=== PATIENT | female | born 1945 | race Caucasian/White ===

== ENCOUNTER 2016-11-09 14:22 | Emergency (ER) | payer MEDICARE, OTHER ==
[~2016-11-09 14:22] MED LIST: ASPIRIN CHEWABL81 MG PO; ATIVAN1 MG PO; LASIX20 MG PO; LIPITOR20 M1 PO; NORVASC5 MG PO; PHENOBARBITAL30 MG PO; PRINIVIL10 MG PO; TENORMIN50 MG PO
[2016-11-09 15:44] LABS: CREATININE 1.1 mg/dL (0.5-1.0); POTASSIUM 4.4 mmol/L (3.5-5.1)
[2016-11-09 15:53] LABS: EOSINOPHIL 2.2 % (0-7); HCT 37.2 % (37.0-47.0); HGB 12.4 g/dl (12.5-16.0); LYMPHOCYTE 38.7 % (15-48); MCH 33.8 pg (25.0-31.0); MCHC 33.3 g/dL (32.0-36.0); MCV 101.4 fL (78.0-100.0); MONOCYTE 9.9 % (0-12); MPV 9.9 fL (6.0-9.5); NEUTROPHIL 48.2 % (41-80); PLT 264 K/uL (150-400); RBC 3.67 M/uL (4.20-5.40); RDW 13.7 % (11.5-14.0); WBC 8.4 K/uL (4.0-10.5)
== END 2016-11-09 16:40 | disposition home or self-care (01) ==
LOC: FER 14:22
PROVIDERS: Emergency Medicine
DX: R68.84 Jaw pain (principal); I10 Essential (primary) hypertension; G40.909 Epilepsy, unspecified, not intractable, without status epilepticus; F17.210 Nicotine dependence, cigarettes, uncomplicated; Z88.8 Allergy status to other drugs, medicaments and biological substances; Z79.82 Long term (current) use of aspirin; Z79.899 Other long term (current) drug therapy
CPT/HCPCS: 36415; 71010; 80048; 84484; 85025; 93005

== ENCOUNTER 2021-07-23 16:05 | Inpatient (IN) | payer MEDICARE, OTHER ==
[~2021-07-23] VITALS: Ht 168 cm; Wt 79.0 kg
[~2021-07-23 16:05] MED LIST changes: +LIDOCAINE 5% P1 EACH TOP; +NAPROSYN250 MG PO; +VOLTAREN100 GM TOP
[2021-07-23 17:03] LABS: BASOPHIL 0.2 % (0-2); EOSINOPHIL 0 % (0-7); HCT 28.2 % (37.0-47.0); HGB 9.1 g/dl (12.5-16.0); MCH 32.2 pg (25.0-31.0); MCHC 32.3 g/dL (32.0-36.0); MCV 99.6 fL (78.0-100.0); MONOCYTE 7.2 % (0-12); MPV 9.5 fL (6.0-9.5); NEUTROPHIL 78.4 % (41-80); NRBC 0; PLT 319 K/uL (150-400); RBC 2.83 M/uL (4.20-5.40); RDW 13.5 % (11.5-14.0); WBC 13.2 K/uL (4.0-10.5)
[2021-07-23 17:08] LABS: INR 1.28 (0.9-1.2); PROTHROMBIN TIME 15.3 SECONDS (11.8-13.4)
[2021-07-23 17:24] LABS: BILIRUBIN 1+ mg/dL (NEGATIVE); BLOOD NEGATIVE Ery/uL (NEGATIVE); CLARITY CLEAR (CLEAR); COLOR YELLOW (YELLOW); GLUCOSE (U) NORMAL (NORMAL); LEUKOCYTES NEGATIVE Leu/uL (NEGATIVE); NITRITE NEGATIVE (NEGATIVE); PROTEIN TRACE (LOW) mg/dL (NEGATIVE); SPECIFIC GRAVITY 1.025 (1.001-1.030); UROBILINOGEN 0.2 mg/dL (0.2-1.0); pH 5.5 (5.0-9.0)
[2021-07-23 17:36] LABS: LACTIC ACID 1.2 mmol/L (0.4-1.9)
[2021-07-23 17:58] LABS: PRO-BNP 4113 pg/mL (<450)
[2021-07-23 18:21] LABS: ALBUMIN 2.8 g/dL (3.4-5.0); ALKALINE PHOSHATASE 129 U/L (46-116); ALT 17 U/L (14-59); AST 41 U/L (15-37); BILIRUBIN - TOTAL 0.4 mg/dL (0.2-1.0); BUN 41 mg/dL (7-18); BUN/CREAT RATIO (CALC) 29.1 RATIO; CHLORIDE 99 mmol/L (98-107); CO2 (BICARBONATE) 23 mmol/L (21-32); CREATININE 1.41 mg/dL (0.51-0.95); GLOBULIN (CALCULATION) 4.3 g/dL; GLUCOSE 108 mg/dL (74-106); LDH 255 U/L (81-234); LIPASE 50 U/L (73-393); MAGNESIUM 2.2 mg/dL (1.8-2.4); POTASSIUM 5.4 mmol/L (3.5-5.1); TOTAL PROTEIN 7.1 g/dL (6.4-8.2)
[2021-07-23 18:32] LABS: C-REACTIVE PROTEIN > 18.00 mg/dL (<=0.90)
[2021-07-23 21:12] LABS: BILIRUBIN 1+ mg/dL (NEGATIVE); BLOOD TRACE-INTACT Ery/uL (NEGATIVE); CLARITY CLEAR (CLEAR); COLOR YELLOW (YELLOW); GLUCOSE (U) NORMAL (NORMAL); LEUKOCYTES NEGATIVE Leu/uL (NEGATIVE); NITRITE NEGATIVE (NEGATIVE); PROTEIN TRACE (LOW) mg/dL (NEGATIVE); SPECIFIC GRAVITY >=1.030 (1.001-1.030); UROBILINOGEN 0.2 mg/dL (0.2-1.0); pH 5.5 (5.0-9.0)
[2021-07-23 21:18] LABS: BACTERIA 1+; URINARY WBC RARE
[2021-07-23] MEDS ORDERED: NEURONTIN400 MG PO ×3 (23:02→23:04)
[2021-07-23] MEDS ORDERED: BUMEX1 MG PO (23:06)
[2021-07-23] MEDS ORDERED: ZYRTEC10 M3 PO (23:07)
[2021-07-23] MEDS ORDERED: HYDROCODON-ACE1 EAC2 PO (23:13)
[2021-07-24 05:56] LABS: BASOPHIL 0.1 % (0-2); EOSINOPHIL 0 % (0-7); HCT 24.1 % (37.0-47.0); HGB 7.9 g/dl (12.5-16.0); LYMPHOCYTE 14.4 % (15-48); MCH 32.1 pg (25.0-31.0); MCHC 32.8 g/dL (32.0-36.0); MONOCYTE 5.4 % (0-12); MPV 9.5 fL (6.0-9.5); NEUTROPHIL 79.8 % (41-80); NRBC 0; PLT 272 K/uL (150-400); RBC 2.46 M/uL (4.20-5.40); RDW 13.3 % (11.5-14.0); WBC 10.7 K/uL (4.0-10.5)
[2021-07-24 06:15] LABS: IRON % SATURATION 11.2 %SAT (20-50)
[2021-07-24 06:48] LABS: BUN/CREAT RATIO (CALC) 30.8 RATIO; CREATININE 1.85 mg/dL (0.51-0.95); FOLIC ACID (SERUM) 5.3 ng/mL (8.6-58.9)
[2021-07-25 07:50] LABS: BASOPHIL 0.1 % (0-2); EOSINOPHIL 0 % (0-7); HCT 22.1 % (37.0-47.0); LYMPHOCYTE 31.2 % (15-48); MCH 32.6 pg (25.0-31.0); MCHC 31.7 g/dL (32.0-36.0); MCV 102.8 fL (78.0-100.0); MPV 9.2 fL (6.0-9.5); NEUTROPHIL 61.2 % (41-80); NRBC 0; PLT 253 K/uL (150-400); RBC 2.15 M/uL (4.20-5.40); RDW 13.8 % (11.5-14.0); WBC 10.8 K/uL (4.0-10.5)
[2021-07-25 08:25] LABS: ALBUMIN 2.1 g/dL (3.4-5.0); BILIRUBIN - TOTAL 0.2 mg/dL (0.2-1.0); BUN/CREAT RATIO (CALC) 38.9 RATIO; CREATININE 1.44 mg/dL (0.51-0.95); GLOBULIN (CALCULATION) 3.8 g/dL; POTASSIUM 4.8 mmol/L (3.5-5.1); TOTAL PROTEIN 5.9 g/dL (6.4-8.2)
[2021-07-26 06:43] LABS: BUN/CREAT RATIO (CALC) 36.8 RATIO; CREATININE 1.44 mg/dL (0.51-0.95); MAGNESIUM 2.3 mg/dL (1.8-2.4); POTASSIUM 5.2 mmol/L (3.5-5.1)
[2021-07-26 07:31] LABS: BASOPHIL 0.1 % (0-2); EOSINOPHIL 0.3 % (0-7); HCT 15.6 % (37.0-47.0); LYMPHOCYTE 50.4 % (15-48); MCH 31.8 pg (25.0-31.0); MCHC 30.8 g/dL (32.0-36.0); MCV 103.3 fL (78.0-100.0); MONOCYTE 8.7 % (0-12); MPV 9.3 fL (6.0-9.5); NEUTROPHIL 40.1 % (41-80); NRBC 0; PLT 208 K/uL (150-400); RBC 1.51 M/uL (4.20-5.40); RDW 13.9 % (11.5-14.0)
[2021-07-26 07:40] LABS: HGB 4.8 g/dl (12.5-16.0); WBC 7.2 K/uL (4.0-10.5)
--- NOTE | 2021-07-26 15:24 | NUR ---
MET WITH PT. SHE ADVISED THAT SHE IS GOING TO THE HOME OF HER SON AND DIL IN [facility]. PT GAVE ME PERMISSION TO SPEAK WITH HER SON AND DIL. TC TO DIL., MAKAYLA CASTAÑEDA. SHE ADVISED THAT THE PLAN IS TO BRING HER MOTHER IN LAW TO HER HOME. SHE STATED THAT PT HAS A RW, WC, 11/07. THEY HAVE A WALK IN SHOWER IN THEIR HOME WITH A SEAT. THERE IS NO PREFERENCE FOR A HH. DIL ADVISED THAT SHE WILL BE AT THE HOSPITAL ON SATURDAY AT 4:30 P.M. AND WOULD LIKE TO MEET WITH ME.
[2021-07-26 22:42] LABS: BASOPHIL 0.1 % (0-2); EOSINOPHIL 0 % (0-7); HCT 24.3 % (37.0-47.0); MCH 31.3 pg (25.0-31.0); MCHC 32.5 g/dL (32.0-36.0); MONOCYTE 9.7 % (0-12); MPV 9.1 fL (6.0-9.5); NEUTROPHIL 59.5 % (41-80); NRBC 0; PLT 203 K/uL (150-400); RBC 2.52 M/uL (4.20-5.40); RDW 15.9 % (11.5-14.0); WBC 7.7 K/uL (4.0-10.5)
[2021-07-26 22:52] LABS: HGB 7.9 g/dl (12.5-16.0)
[2021-07-26 22:53] LABS: MCV 96.4 fL (78.0-100.0)
[2021-07-26 23:12] LABS: TOTAL CELL COUNT 100
[2021-07-26 23:13] LABS: BAND 1 % (0-10); LYMPHOCYTE(M) 31 % (15-48); MONOCYTE(M) 5 % (0-12); NEUTROPHILS(M) 61 % (41-80); PROMYELOCYTE 2
[2021-07-26 23:15] LABS: PLATELET ESTIMATE NORMAL; PLATELET MORPHOLOGY NORMAL
[2021-07-26 23:16] LABS: POLYCHROMASIA SLIGHT
[2021-07-26 23:17] LABS: ANISOCYTOSIS SLIGHT; DACRYOCYTES (TEAR DROP CELLS) RARE; ELLIPTOCYTES (OVALOCYTES) RARE
[2021-07-27 07:03] LABS: BUN/CREAT RATIO (CALC) 33.3 RATIO; CREATININE 1.35 mg/dL (0.51-0.95); MAGNESIUM 2.3 mg/dL (1.8-2.4); POTASSIUM 4.9 mmol/L (3.5-5.1)
[2021-07-27 08:00] LABS: BASOPHIL 0.3 % (0-2); EOSINOPHIL 0.6 % (0-7); HCT 24.5 % (37.0-47.0); LYMPHOCYTE 39.2 % (15-48); MCH 31.4 pg (25.0-31.0); MCHC 32.7 g/dL (32.0-36.0); MCV 96.1 fL (78.0-100.0); MONOCYTE 11.6 % (0-12); MPV 9.4 fL (6.0-9.5); NEUTROPHIL 46.8 % (41-80); NRBC 0; PLT 226 K/uL (150-400); RBC 2.55 M/uL (4.20-5.40); WBC 9.6 K/uL (4.0-10.5)
[2021-07-28 07:40] LABS: BASOPHIL 0.3 % (0-2); HCT 26.9 % (37.0-47.0); HGB 8.7 g/dl (12.5-16.0); LYMPHOCYTE 31.4 % (15-48); MCH 31.2 pg (25.0-31.0); MCHC 32.3 g/dL (32.0-36.0); MCV 96.4 fL (78.0-100.0); MONOCYTE 9.2 % (0-12); MPV 9.1 fL (6.0-9.5); NEUTROPHIL 56.3 % (41-80); NRBC 0; PLT 249 K/uL (150-400); RBC 2.79 M/uL (4.20-5.40); RDW 15.7 % (11.5-14.0)
--- NOTE | 2021-07-28 11:36 | NUR ---
LIOR CASTELLANO AT [facility] PT HAS BEEN ACCEPTED AT [facility] IN [place]. SHE WILL NEED A RAPID COVID. ADVISED PT THAT SHE HAS BEEN ACCEPTED AT [facility] AND SHE IS IN AGREEMENT. REPORT NUMBER IS [id number] ASK FOR NURSE'S STATION. FAX NUMBER FOR REPORT IS [phone].
--- NOTE | 2021-07-28 11:38 | NUR ---
ADVISED MIGUELANGEL BAINS THAT PT HAS BEEN ACCEPTED AT [facility].
[2021-07-28] MEDS ORDERED: VICODIN 10/3251 EACH PO (14:01)
[2021-07-28] MEDS ORDERED: DUONEB 2.5-0.5M1 AMP NEB (14:01)
[2021-07-28] MEDS ORDERED: NEURONTIN400 MG PO ×3 (14:03)
[2021-07-28] MEDS ORDERED: PHENOBARBITAL30 MG PO (14:03)
[2021-07-28] MEDS ORDERED: STIMULANT LAXA1 EACH PO (14:28)
[2021-07-28] MEDS ORDERED: PULMICORT0.5 MG/2 M NEB (14:28)
[2021-07-28] MEDS ORDERED: CHILDREN'S ASPI81 MG PO (14:28)
[2021-07-28] MEDS ORDERED: ATIVAN1 MG PO (14:35)
== END 2021-07-28 18:40 | DRG 481 ==
LOC: FER 16:05 → FMS 18:12
PROVIDERS: Emergency Medicine; Family Medicine; Internal Medicine; Nurse Practitioner; ADMIT Orthopaedic Surgery
PROC: 0QS704Z Reposition Left Upper Femur with Internal Fixation Device, Open Approach (ICD-10-PCS; principal; 2021-07-25 16:30)
DX: S72.142A Displaced intertrochanteric fracture of left femur, initial encounter for closed fracture (principal); S42.202A Unspecified fracture of upper end of left humerus, initial encounter for closed fracture; J44.1 Chronic obstructive pulmonary disease with (acute) exacerbation; N17.9 Acute kidney failure, unspecified; D62 Acute posthemorrhagic anemia; J96.11 Chronic respiratory failure with hypoxia; I12.9 Hypertensive chronic kidney disease with stage 1 through stage 4 chronic kidney disease, or unspecified chronic kidney disease; N18.30 Chronic kidney disease, stage 3 unspecified; R91.1 Solitary pulmonary nodule; Z20.822 Contact with and (suspected) exposure to COVID-19; G40.909 Epilepsy, unspecified, not intractable, without status epilepticus; M06.9 Rheumatoid arthritis, unspecified; F17.210 Nicotine dependence, cigarettes, uncomplicated; Z99.81 Dependence on supplemental oxygen; Z90.89 Acquired absence of other organs; Z98.51 Tubal ligation status; Z98.890 Other specified postprocedural states; Z79.82 Long term (current) use of aspirin; Z79.899 Other long term (current) drug therapy; Z88.8 Allergy status to other drugs, medicaments and biological substances; Z28.21 Immunization not carried out because of patient refusal; W01.0XXA Fall on same level from slipping, tripping and stumbling without subsequent striking against object, initial encounter
CPT/HCPCS: 36415; 36430; 36600; 70450; 71250; 73501; 73502; 76000; 80048; 80053; 80184; 80202; 81001; 81003; 82607; 82728; 82746; 82803; 83036; 83540; 83550; 83605; 83615; 83690; 83735; 83880; 84145; 84484; 85025; 85610; 85730; 86140; 86850; 86900; 86901; 86922; 87040; 87077; 87186; 93005; 94010; 94640; 94667; 94668; 97163; 97167; 97530; 97530-GP; 97535; C1713; J0697; J1100; J1170; J1200; J1650; J1885; J2405; J2704; J2930; J3010; J3370; J7030; J7050; J7120; J7512; P9016; U0002